=== PATIENT | male | born 1945 | race Caucasian/White ===

== ENCOUNTER → 2016-05-20 | Outpatient (CLI) | payer OTHER ==
[~2016-05-20] VITALS: Ht 177.8 cm; Wt 83.9 kg
[~2016-05-20] MED LIST: ASPIRIN325 PO; BYSTOLIC 5 MG5 M1 PO; CRESTOR10 MG PO; FISH OIL 1,001000 M2 PO; PLAVIX 300 MG300 M1 PO
--- NOTE | ~2016-05-20 | CATHLAB ---
[facility] [place] [address] INVASIVE PROCEDURE REPORT Name: TAMARAMARCELO Fady [facility]: [facility] [id number] Admission: 05/20/16 Attend Phys: Cash Robin, Discharge: Date of : 49 Date of Service: 05/20/16 0908 Report #: [id number] THIS REPORT FOR: //name// CC: Amira Robin PROCEDURES: Left ventriculography and coronary angiography. DESCRIPTION OF PROCEDURE: Right groin prepped and draped in a sterile manner. Xylocaine 1% was used for local anesthesia. Versed was given for conscious sedation. A 6-Turkmen sheath to the right femoral artery. Straight pigtail catheter performed a single BRISCOE ventriculogram and AP aortogram. There was a question of narrowing in the renal arteries. The abdominal aorta was mildly ectatic. FL4 for the left coronary system, FR4 for the right coronary system. Multiple views and obliques were taken. There was a small infrarenal aortic aneurysm, I should note. I will have to evaluate that with noninvasive means, although this appears very small, more of an ectatic aorta. The FR4 for the selective injection of the bilateral single renal arteries with mild disease. The coronary anatomy was mild disease in the LAD; a tortuous lesion in the mid LAD of 50%-60% and then more distal 60% lesion, which has not significantly progressed. Circum OM is a large predominantly dominant vessel. The second is the large OM which has 30% in-stent restenosis from a remotely placed stent. Small codominant right. This gives rise to a small PDA which is mildly diseased. Mynx closure was utilized without complication. He tolerated this well. He will be transferred back to CV holding. HEMODYNAMICS: Aortic 150/72, LV 158/8. IMPRESSION: 1. Left main, free of disease. 2. The left anterior descending, mild proximal calcification, a mid vessel lesion of 50%-60% and in the distal 60%, which has not significantly progressed. Circumflex obtuse marginal is a large predominantly codominant vessel with 30% in-stent restenosis in a previously placed stent. Smaller codominant right, giving rise to a small posterior descending artery, diffusely diseased. 3. Normal left ventricular size and systolic function, ejection fraction 60%. 4. Bilateral single renal arteries have mild ostial disease. 5. There is a small infrarenal aortic ectatic segment or small aneurysm. We will evaluate noninvasively. RECOMMENDATIONS: Continue aggressive risk factor modification. No current [address] [address] INVASIVE PROCEDURE REPORT Name: MARCELO MCDONALD Room #: REG [place] Loza#: [id number] Admission: 05/20/16 Attend Phys: Cash Robin, Discharge: Date of : 49 Date of Service: 05/20/16 0908 Report #: [id number] indication for intervention. No lifting for 48 hours. No lying in tub, Jacuzzi or [place] for a week. <ELECTRONICALLY SIGNED> By: Cash Robin MD, FACC 05/31/16 0847 0908 0943 Cash Robin MD, FACC /nt
[2016-05-20 06:52] VITALS: BP 153/62
[2016-05-20 07:17] LABS: HEMATOCRIT 46.2 % (42.0-52.0); HEMOGLOBIN 15.7 gm/dL (14.0-18.0); MCH 29.4 pg (26.0-34.0); MCHC 33.9 % (28.0-37.0); MCV 86.5 fL (80.0-100.0); RBC 5.34 mil/uL (4.50-6.00); RDW 12.6 % (10.5-14.5); WBC 8.1 thou/uL (4.0-11.0)
[2016-05-20 07:35] LABS: CALCIUM 8.9 mg/dL (8.5-10.1); POTASSIUM 4.2 mmol/L (3.5-5.1)
== END | disposition home or self-care (01) ==
LOC: CATH 06:22
PROVIDERS: Internal Medicine Cardiovascular Disease
DX: I25.10 Atherosclerotic heart disease of native coronary artery without angina pectoris (principal); I71.9 Aortic aneurysm of unspecified site, without rupture

== ENCOUNTER 2017-02-08 12:45 | Inpatient (IN) | payer OTHER ==
[~2017-02-08] VITALS: Ht 177.8 cm; Wt 78.7 kg
--- NOTE | ~2017-02-08 | HC ---
[facility] [place] [address] CONSULTATION Name: MARCELO MCDONALD Room #: 200-I ADM IN ..#: [id number] Admission: 02/08/17 Attend Phys: Travis White MD Discharge: Date of : 49 Report #: [id number] THIS REPORT FOR: //name// CC: Cash [facility] REASON FOR CONSULTATION: Chest pain, possible unstable angina. HISTORY OF PRESENT ILLNESS: The patient is a 72-year-old with history of coronary artery disease, status post stent to the circumflex and OM back in 1999. Most recent cardiac catheterization was in April 2016, showing a mid LAD lesion that was 50-60% and a 30% in-stent lesion within the circumflex. Medical management was recommended. He presented yesterday after he was leaving to go to the [place] and then had an episode of chest pressure that was associated with bilateral arm numbness and heaviness and associated with some shortness of breath and feeling that his neck was tightening up. He presented to the emergency room for further evaluation. He is currently chest pain free. Denies any PND, orthopnea, presyncope, or syncope. REVIEW OF SYSTEMS: A 12-point review of systems was performed and was negative other than what is mentioned above. PAST MEDICAL HISTORY: 1. Coronary artery disease as mentioned above, hypertension, hyperlipidemia, left bundle branch block. 2. Kidney stone. SOCIAL HISTORY: Quit smoking. FAMILY HISTORY: Noncontributory. ALLERGIES: CODEINE. HOME MEDICATIONS: Aspirin, Crestor, fish oil, and Plavix. PHYSICAL EXAMINATION: VITAL SIGNS: Temperature is 36.4, pulse is 49-65, respirations 16, blood pressure 116/68, and sats are 98%. GENERAL: He is in no acute distress. HEENT: Oropharynx is clear. Sclerae are anicteric. NECK: Supple. No thyromegaly. HEART: Regular rate and rhythm with no murmurs, rubs, or gallops. LUNGS: Clear to auscultation bilaterally. ABDOMEN: He is slightly tender in the midepigastric region. There is no rebound, otherwise nontender. No hepatosplenomegaly. EXTREMITIES: No clubbing, cyanosis, or edema. [facility] [address] [place] [address] CONSULTATION Name: MARCELO MCDONALD Room #: 200-I [facility] IN [facility].#: [id number] Admission: 02/08/17 Attend Phys: Travis White MD Discharge: Date of : 49 Report #: [id number] NEUROLOGIC: Cranial nerves 2-12 are intact. LABORATORY DATA: White count is 8.3, hemoglobin 14, and platelets 196. Sodium 139, potassium 4.0, BUN 16, and creatinine 1. Troponins times 3 are negative. LFTs are normal. His proBNP is 70. His CT scan showed no aortic dissection, nothing wrong with the liver or gallbladder. His EKG shows sinus rhythm with a left bundle branch block. His chest x-ray visualized shows no acute process. IMPRESSION: In summary, the patient is a 72-year-old with known coronary artery disease, presenting with chest pain concerning for possible unstable angina. Thus far, his troponins are negative. EKG shows no ischemic changes. I have recommended that he undergo a nuclear stress test and if this is abnormal, we will proceed with repeat heart catheterization. We will continue to follow. By: 1334 1435 Lex White MD /nt
--- NOTE | ~2017-02-08 | EKG ---
[address] [address] ELECTROCARDIOGRAM REPORT Name: MARCELO MCDONALD Room #: 200-I ADM IN M.R.#: [id number] Admission: 02/08/17 Attend Phys: Travis White MD Discharge: Date of : 49 Report #: [id number] THIS REPORT FOR: //name// [facility] ED Test Date: 2017-02-08 Test Time: 12:46:30 Pat Name: MARCELO MCDONALD Department: Room: 200 Gender: M Inspector Glass Or Mirror: MARY LOU : 1945 Requested By: Gabriele Bragg Order Number: [id number] MD: Lex White Measurements Intervals [place] Rate: 83 P: 84 PA: 188 QRS: -31 QRSD: 142 T: 110 QT: 419 QTc: 493 Interpretive Statements Sinus rhythm Left bundle branch block Compared to ECG 05/15/2009 14:04:02 Left bundle-branch block now present Sinus bradycardia no longer present Electronically Signed On 02-08-2017 16:16:37 CDT by Lex White [email or web address] <ELECTRONICALLY SIGNED> By: Lex White MD 02/08/17 1616 1246 1246 Lex White MD /EPI
--- NOTE | ~2017-02-08 | 2DMMODE ---
[facility] [address] [place] [address] 2 D/M-MODE ECHOCARDIOGRAM Name: MARCELO MCDONALD Room #: 200-I ADM IN [facility]#: [id number] Admission: 02/08/17 Attend Phys: Travis White, Discharge: Date of : 49 Date of Service: 02/10/17 0951 Report #: [id number] THIS REPORT FOR: //name// APPROVED REPORT Study performed: 02/10/2017 09:13:30 EXAM: Comprehensive 2D, Doppler, and color-flow Echocardiogram Patient Location: Echo lab Room #: 200 Status: routine BSA: 1.96 HR: 48 bpm BP: 133/77 mmHg Rhythm: LBBB Other Information Study Quality: Adequate/low parasternal window. Lung disease Indications Chest Pain Hx: CAD, stent, HTN, LBBB 2D Dimensions RVDd: 34.81 mm LVEF(%): 45.13 (>50%) IVSd: 9.11 (7-11mm) LVOT Diam: 22.32 (18-24mm) LVDd: 46.51 mm PWd: 8.90 (7-11mm) LVDs: 36.10 (25-40mm) Aortic Root: 30.50 mm Fuentes's LVEF: 45.13 % Volumes Left Atrial Volume (Systole) Single Plane 4CH: 41.32 mL Single Plane 2CH: 31.03 mL LA ESV Index: 19.00 mL/m2 Aortic Valve AoV Peak Tang.: 0.96 m/s AO Peak Gr.: 3.72 mmHg LVOT Max P.01 mmHg LVOT Max V: 0.87 m/s JAMAL Vmax: 3.52 cm2 Mitral Valve [facility] [place] [address] 2 D/M-MODE ECHOCARDIOGRAM Name: MARCELO MCDONALD Room #: 200-I [facility] IN ..#: [id number] Admission: 02/08/17 Attend Phys: Travis White, Discharge: Date of : 49 Date of Service: 02/10/17 0951 Report #: [id number] E/A Ratio: 0.8 MV Decel. Time: 214.17 ms MV E Max Tang.: 0.61 m/s MV A Tang.: 0.78 m/s MV PHT: 62.11 ms IVRT: 119.95 ms Pulmonary Valve PV Peak Tang.: 0.83 m/s PV Peak Gr.: 2.73 mmHg Pulmonary Vein P Vein S: 0.48 m/s P Vein A: 0.32 m/s P Vein D: 0.46 m/s P Vein A Dur.: 110.7 msec P Vein S/D Ratio: 1.04 Tricuspid Valve RAP Estimate: 5.00 mmHg Left Ventricle The left ventricle is normal size. Paradoxical septal motion consistent with conduction abnormality. There is normal left ventricular wall thickness. Left ventricular systolic function is at the lower limits of normal. LVEF is 45-50%. Mild diastolic dysfunction is present (impaired relaxation pattern). Right Ventricle The right ventricle is normal size. The right ventricular systolic function is normal. Atria The left atrium size is normal. The right atrium size is normal. Aortic Valve The aortic valve is normal in structure. No aortic regurgitation is present. There is no aortic valvular stenosis. Mitral Valve The mitral valve is normal in structure. No mitral regurgitation. No evidence of mitral valve stenosis. Tricuspid Valve The tricuspid valve is normal in structure. There is no tricuspid valve regurgitation noted. Unable to assess PA pressure. Pulmonic Valve [place] [id number] 2 D/M-MODE ECHOCARDIOGRAM Name: TAMARAMARCELO Fady Room #: 200-I [facility] IN [facility]#: [id number] Admission: 02/08/17 Attend Phys: Travis White, Discharge: Date of : 49 Date of Service: 02/10/17 0951 Report #: [id number] Pulmonic valve is not well visualized. Great Vessels The aortic root is normal in size. Ascending aorta is not well visualized. IVC is normal in size and collapses >50% with inspiration. Pericardium There is no pericardial effusion. <Conclusion> Left ventricular systolic function is at the lower limits of normal. Paradoxical septal motion consistent with conduction abnormality. LVEF 45-50%. Mild diastolic dysfunction is present (impaired relaxation pattern). The aortic valve is normal in structure. No aortic valvular stenosis or insufficiency. The mitral valve is normal in structure. No mitral regurgitation. Pulmonary artery pressure could not be reliably ascertained There is no pericardial effusion. <ELECTRONICALLY SIGNED> By: Flaquito Valle MD, FACC 02/10/17950 0 0 Flaquito Valle MD, FACC /INF
[2017-02-08 12:47] VITALS: BP 171/102
[2017-02-08 13:18] LABS: ABSOLUTE NEUTROPHILS 4.9 thou/uL (1.4-8.2); BASOPHILS 0.7 % (0.0-2.0); EOSINOPHILS 3.2 % (0.0-3.0); HEMATOCRIT 47.5 % (42.0-52.0); HEMOGLOBIN 16.4 gm/dL (14.0-18.0); LYMPHOCYTES 31.5 % (24.0-44.0); MCH 30.4 pg (26.0-34.0); MCHC 34.4 g/dL (28.0-37.0); MCV 88.1 fL (80.0-100.0); MONOCYTES 9.8 % (1.0-8.0); PLATELET COUNT 221 thou/uL (150-400); POLYS 54.8 % (36.0-66.0); RBC 5.39 mil/uL (4.50-6.00); RDW 12.7 % (10.5-14.5); WBC 8.9 thou/uL (4.0-11.0)
[2017-02-08 13:19] LABS: MANUAL DIFF NO
[2017-02-08 13:22] LABS: POC CA IONIZED 4.8 mg/dL (4.5-5.3); POC CREATININE 1.2 mg/dL (0.6-1.3); POC HEMOGLOBIN 15.6 g/dL (14.0-18.0)
[2017-02-08 13:27] LABS: ANION GAP 8 mmol/L (7-16); BUN 18 mg/dL (7-18); CALCIUM 10.3 mg/dL (8.5-10.1); CHLORIDE 104 mmol/L (98-107); CO2 26 mmol/L (21-32); CREATININE 1.2 mg/dL (0.7-1.3); GLUCOSE 97 mg/dL (74-106); POTASSIUM 4.3 mmol/L (3.5-5.1); SODIUM 138 mmol/L (136-145)
[2017-02-08 13:35] LABS: ALBUMIN 4.7 g/dL (3.4-5.0); ALKALINE PHOSPHATASE 76 U/L (46-116); DIRECT BILIRUBIN 0.2 mg/dL (<0.1-0.3); SGOT 20 U/L (15-37); SGPT 23 U/L (30-65); TOTAL BILIRUBIN 0.8 mg/dL (<0.1-1.0); TOTAL PROTEIN 7.6 g/dL (6.4-8.2); TROPONIN-I < 0.04 ng/mL (<0.04-0.07)
[2017-02-08 14:51] VITALS: BP 129/71
[2017-02-08 15:13] VITALS: BP 140/73
[2017-02-08 19:34] VITALS: BP 128/64
[2017-02-09 04:20] LABS: HEMATOCRIT 43.5 % (42.0-52.0); HEMOGLOBIN 14.9 gm/dL (14.0-18.0); MCH 30.2 pg (26.0-34.0); MCHC 34.3 g/dL (28.0-37.0); MCV 87.9 fL (80.0-100.0); RBC 4.94 mil/uL (4.50-6.00); RDW 12.5 % (10.5-14.5); WBC 8.3 thou/uL (4.0-11.0)
[2017-02-09 04:21] VITALS: BP 113/57
[2017-02-09 04:40] LABS: CALCIUM 9.1 mg/dL (8.5-10.1); TROPONIN-I 0.05 ng/mL (<0.04-0.07)
[2017-02-09 08:36] VITALS: BP 135/75
[2017-02-09 12:36] VITALS: BP 116/68
[2017-02-09 15:54] VITALS: BP 134/66
[2017-02-09 20:13] VITALS: BP 116/64
[2017-02-10 03:28] VITALS: BP 119/59
[2017-02-10 07:50] VITALS: BP 133/77
[2017-02-10 15:55] VITALS: BP 133/77
== END 2017-02-10 18:28 | disposition home or self-care (01) | DRG 313 ==
LOC: ER 12:45 → 2N 14:24 → EROBS 14:24 → 2N 15:13
PROVIDERS: Internal Medicine; Physician Assistant
DX: R07.89 Other chest pain (principal); I10 Essential (primary) hypertension; E78.5 Hyperlipidemia, unspecified; I44.7 Left bundle-branch block, unspecified; I25.10 Atherosclerotic heart disease of native coronary artery without angina pectoris; Z95.5 Presence of coronary angioplasty implant and graft; Z87.442 Personal history of urinary calculi; Z79.899 Other long term (current) drug therapy; Z79.82 Long term (current) use of aspirin; Z87.891 Personal history of nicotine dependence; Z88.6 Allergy status to analgesic agent; Z79.02 Long term (current) use of antithrombotics/antiplatelets
CPT/HCPCS: 10081

== ENCOUNTER 2019-04-07 12:24 | Emergency (ER) | payer OTHER ==
[~2019-04-07] VITALS: Ht 177.8 cm; Wt 74.8 kg
[2019-04-07 13:26] LABS: ABSOLUTE NEUTROPHILS 10.4 thou/uL (1.4-8.2); BASOPHILS 0.8 % (0.0-2.0); EOSINOPHILS 1.3 % (0.0-3.0); HEMATOCRIT 47.3 % (42.0-52.0); HEMOGLOBIN 15.5 gm/dL (14.0-18.0); LYMPHOCYTES 10.4 % (24.0-44.0); MCH 30.2 pg (26.0-34.0); MCHC 32.8 g/dL (28.0-37.0); MCV 92.1 fL (80.0-100.0); MONOCYTES 8.2 % (1.0-8.0); PLATELET COUNT 208 thou/uL (150-400); POLYS 79.3 % (36.0-66.0); RBC 5.13 mil/uL (4.50-6.00); RDW 13.1 % (10.5-14.5); WBC 13.2 thou/uL (4.0-11.0)
[2019-04-07 13:32] LABS: ANION GAP 9 mmol/L (7-16); BUN 22 mg/dL (7-18); CALCIUM 9.7 mg/dL (8.5-10.1); CHLORIDE 105 mmol/L (98-107); CO2 27 mmol/L (21-32); CREATININE 1.1 mg/dL (0.7-1.3); GLUCOSE 99 mg/dL (74-106); POTASSIUM 4.1 mmol/L (3.5-5.1); SODIUM 141 mmol/L (136-145)
[2019-04-07 13:42] LABS: SGOT 17 U/L (15-37); SGPT 25 U/L (30-65); TOTAL BILIRUBIN 0.8 mg/dL (<0.1-1.0); TOTAL PROTEIN 7.2 g/dL (6.4-8.2); TROPONIN-I <0.06 ng/mL (<0.06)
[2019-04-07 17:31] VITALS: BP 125/68
--- NOTE | 2019-04-08 09:39 | EKG ---
[place] [address] [place] [address] ELECTROCARDIOGRAM REPORT Name: MARCELO MCDONALD [id number] Admission: 04/07/19 Attend Phys: Discharge: 04/07/19 Date of : 49 Report #: [id number] THIS REPORT FOR: //name// [facility] ED Test Date: 2019-04-07 Test Time: 12:28:16 Pat Name: MARCELO MCDONALD Department: Room: Gender: Sports Equipment Repairer: [facility] : 1945 Requested By: Ruthie Sanabria Order Number: [id number] MD: Flaquito Valle Measurements Intervals [place] Rate: 53 P: 10 NM: 158 QRS: -28 QRSD: 139 T: 100 QT: 452 QTc: 425 Interpretive Statements Sinus rhythm Left bundle branch block Compared to ECG 02/08/2017 12:46:30 No significant changes Electronically Signed On 04-08-2019 9:39:26 CLOTH FINISHING RANGE OPERATOR CHIEF by Flaquito Valle [email or web address] <ELECTRONICALLY SIGNED> By: Flaquito Valle MD, [facility] 04/08/19 0939 1228 1228 Flaquito Valle MD, FACC /EPI
== END 2019-04-07 17:31 | disposition home or self-care (01) ==
LOC: ER 12:24
PROVIDERS: Physician Assistant
DX: R42 Dizziness and giddiness (principal); I10 Essential (primary) hypertension; E78.5 Hyperlipidemia, unspecified; Z95.5 Presence of coronary angioplasty implant and graft; Z87.442 Personal history of urinary calculi; Z87.891 Personal history of nicotine dependence; Z88.6 Allergy status to analgesic agent

== ENCOUNTER 2019-04-11 11:17 | Emergency (ER) | payer OTHER ==
[~2019-04-11] VITALS: Ht 177.8 cm; Wt 74.8 kg
[2019-04-11 11:36] LABS: ABSOLUTE NEUTROPHILS 7.2 thou/uL (1.4-8.2); BASOPHILS 0.5 % (0.0-2.0); EOSINOPHILS 1.4 % (0.0-3.0); HEMOGLOBIN 15.8 gm/dL (14.0-18.0); LYMPHOCYTES 13.7 % (24.0-44.0); MCH 30.4 pg (26.0-34.0); MCHC 33.7 g/dL (28.0-37.0); MCV 90.1 fL (80.0-100.0); MONOCYTES 7.2 % (1.0-8.0); PLATELET COUNT 203 thou/uL (150-400); POLYS 77.2 % (36.0-66.0); RBC 5.21 mil/uL (4.50-6.00); RDW 12.8 % (10.5-14.5); WBC 9.3 thou/uL (4.0-11.0)
[2019-04-11 11:50] LABS: ANION GAP 9 mmol/L (7-16); BUN 19 mg/dL (7-18); CALCIUM 9.7 mg/dL (8.5-10.1); CHLORIDE 105 mmol/L (98-107); CO2 26 mmol/L (21-32); CREATININE 1.1 mg/dL (0.7-1.3); GLUCOSE 158 mg/dL (74-106); POTASSIUM 3.8 mmol/L (3.5-5.1); SODIUM 140 mmol/L (136-145)
[2019-04-11 11:54] LABS: ALBUMIN 3.8 g/dL (3.4-5.0); SGOT 14 U/L (15-37); SGPT 23 U/L (30-65); TOTAL BILIRUBIN 0.7 mg/dL (<0.1-1.0); TOTAL PROTEIN 6.9 g/dL (6.4-8.2); TROPONIN-I <0.06 ng/mL (<0.06)
[2019-04-11 13:00] VITALS: BP 131/58
--- NOTE | 2019-04-15 12:45 | EKG ---
[place] [address] [facility] [place] [address] ELECTROCARDIOGRAM REPORT Name: MARCELO MCDONALD [facility] [id number] Admission: 04/11/19 Attend Phys: Discharge: 04/11/19 Date of : 49 Report #: [id number] THIS REPORT FOR: //name// [facility] ED Test Date: 2019-04-11 Test Time: 11:14:24 Pat Name: MARCELO MCDONALD Department: Room: Gender: Tax Compliance Manager: [facility] : 1945 Requested By: Ruthie Sanabria Order Number: [id number] MD: Lex White Measurements Intervals [place] Rate: 65 P: 83 [place]: 166 QRS: -25 QRSD: 140 T: 118 QT: 429 QTc: 447 Interpretive Statements Sinus rhythm Probable left atrial enlargement Left bundle branch block Compared to ECG 04/07/2019 12:28:16 No significant changes Electronically Signed On 04-15-2019 12:45:24 ASSOCIATE DIRECTOR OF BIOSTATISTICS by Lex White [email or web address] <ELECTRONICALLY SIGNED> By: Lex White MD 04/15/19 1245 1114 111 Lex White MD /RAJ
== END 2019-04-11 13:01 | disposition home or self-care (01) ==
LOC: ER 11:17
PROVIDERS: Physician Assistant
DX: R00.2 Palpitations (principal); I10 Essential (primary) hypertension; E78.5 Hyperlipidemia, unspecified; Z87.442 Personal history of urinary calculi; Z95.5 Presence of coronary angioplasty implant and graft; Z87.891 Personal history of nicotine dependence; Z88.6 Allergy status to analgesic agent

== ENCOUNTER → 2019-09-20 | Outpatient (CLI) | payer OTHER | LOC: SJCVC 10:47 | DX: I44.7 Left bundle-branch block, unspecified (principal); R00.1 Bradycardia, unspecified; R94.31 Abnormal electrocardiogram [ECG] [EKG]; I25.10 Atherosclerotic heart disease of native coronary artery without angina pectoris; I10 Essential (primary) hypertension; E78.00 Pure hypercholesterolemia, unspecified; I71.4 Abdominal aortic aneurysm, without rupture; I65.23 Occlusion and stenosis of bilateral carotid arteries; E78.5 Hyperlipidemia, unspecified; Z82.49 Family history of ischemic heart disease and other diseases of the circulatory system; Z79.82 Long term (current) use of aspirin; Z79.899 Other long term (current) drug therapy; Z87.891 Personal history of nicotine dependence ==

== ENCOUNTER → 2020-01-26 | Outpatient (CLI) | payer OTHER ==
[2020-01-26 10:12] LABS: CALCIUM 9.4 mg/dL (8.5-10.1); CREATININE 0.9 mg/dL (0.7-1.3); POTASSIUM 4.6 mmol/L (3.5-5.1)
== END ==
LOC: CAT 09:35
PROVIDERS: ATTEND Internal Medicine Cardiovascular Disease
DX: Z01.812 Encounter for preprocedural laboratory examination (principal); J43.9 Emphysema, unspecified; I25.10 Atherosclerotic heart disease of native coronary artery without angina pectoris; I70.0 Atherosclerosis of aorta; J84.10 Pulmonary fibrosis, unspecified

== ENCOUNTER → 2020-02-01 | Outpatient (CLI) | payer OTHER | LOC: SJCVCIMAG 07:17 | PROVIDERS: ATTEND Internal Medicine Cardiovascular Disease | DX: I25.10 Atherosclerotic heart disease of native coronary artery without angina pectoris (principal); I10 Essential (primary) hypertension; I71.4 Abdominal aortic aneurysm, without rupture ==

== ENCOUNTER → 2020-02-04 | Outpatient (CLI) | payer OTHER ==
[~2020-02-04] MED LIST changes: +FLOMAX0.4 MG PO; +VIAGRA50 MG PO
== END ==
LOC: SJCVCIMAG 09:43
PROVIDERS: ATTEND Internal Medicine Cardiovascular Disease
DX: I25.10 Atherosclerotic heart disease of native coronary artery without angina pectoris (principal); I44.7 Left bundle-branch block, unspecified; I49.3 Ventricular premature depolarization; Z79.899 Other long term (current) drug therapy; Z87.891 Personal history of nicotine dependence

== ENCOUNTER → 2020-02-10 | Outpatient (CLI) | payer OTHER ==
[~2020-02-10] VITALS: Ht 177.8 cm; Wt 77.1 kg
[2020-02-10 07:15] VITALS: BP 142/58
[2020-02-10 07:48] LABS: HEMOGLOBIN 15.2 gm/dL (14.0-18.0); MCH 30.2 pg (26.0-34.0); MCHC 33.9 g/dL (28.0-37.0); RBC 5.05 mil/uL (4.50-6.00); RDW 12.8 % (10.5-14.5); WBC 7.6 thou/uL (4.0-11.0)
--- NOTE | 2020-02-10 07:57 | EKG ---
[facility] [place] [address] ELECTROCARDIOGRAM REPORT Name: MARCELO MCDONALD Room #: REG [facility]#: [id number] Admission: 02/10/20 Attend Phys: Cash Robin MD, Discharge: Date of : 49 Report #: [id number] THIS REPORT FOR: cc: GEMA FU FAMILY PHYSICIAN or PCP Mohsen Michelle MD [facility] ~ THIS REPORT FOR: //name// [facility] Test Date: 2020-02-10 Test Time: 07:32:34 Pat Name: MARCELO MCDONALD Department: Room: Gender: Food Processing Chemist: [facility] : 1945 Requested By: Cash Robin Order Number: [id number] MD: Mohsen Michelle Measurements Intervals [place] Rate: 59 P: 79 [place]: 169 QRS: -31 QRSD: 141 T: 106 QT: 449 QTc: 445 Interpretive Statements Sinus rhythm Left bundle branch block Compared to ECG 04/11/2019 11:14:24 No significant changes Electronically Signed On 02-10-2020 7:57:34 CDT by Mohsen Michelle [email or web address] <ELECTRONICALLY SIGNED> By: Mohsen Michelle MD, FACC 02/10/20 0757 0732 0732 Mohsen Michelle MD, [facility] /EPI
[2020-02-10 08:34] LABS: CALCIUM 9.4 mg/dL (8.5-10.1); CREATININE 1.1 mg/dL (0.7-1.3); POTASSIUM 4.3 mmol/L (3.5-5.1)
[2020-02-10 09:46] VITALS: BP 142/58
--- NOTE | 2020-02-11 08:50 | D ---
[facility] [place] [address] DISCHARGE SUMMARY Name: MARCELO MCDONALD Room #: REG [facility]#: [id number] Admission: 02/10/20 Attend Phys: Cash Robin MD, Discharge: Date of : 49 Report #: [id number] THIS REPORT FOR: cc: GEMA FU FAMILY PHYSICIAN or PCP Cash Robin MD [facility] THIS REPORT FOR: //name// CC: GEMA DE LUNA PCP SHORT STAY SUMMARY HISTORY OF PRESENT ILLNESS: The patient is a 75-year-old male well known to myself. He is admitted today for cardiac catheterization, having some progressive fatigue and some questionable chest discomfort. A nuclear stress test suggested some worsening jennifer-infarct ischemia. He has underlying left bundle branch block and some labile hypertension. Last catheterization was on April 2016. He has had a remote OM stent placed. MEDICATIONS: His medications have been aspirin, Plavix, fish oil, Viagra, olmesartan 20 and Flomax. PAST MEDICAL HISTORY: Positive for the coronary artery disease, limited inferolateral infarct with preserved EF, hypertension, hypercholesterolemia, bundle branch block. He has had intervention in 2009. The stent was placed. FAMILY HISTORY: Father had cancer. Grandfather did have an early infarct. SOCIAL HISTORY: He is , former tobacco user. No significant social alcohol. No drug use. Cup of coffee a day. He does walk somewhat regularly. REVIEW OF SYSTEMS: Negative except for stated above. Slight decrease in exercise tolerance and some occasional nocturia. ALLERGIES: No known drug allergies. PHYSICAL EXAMINATION: VITAL SIGNS: Blood pressure is 146/72, pulse 60. EYES: Reveal xanthelasmas. Pharynx is clear. NECK: Shows preserved upstrokes without JVD or bruits. LUNGS: Clear. CARDIAC: Regular rate and rhythm, S1, S2, without murmur or gallop. ABDOMEN: Soft. No HSM or abdominal bruit. EXTREMITIES: Trace of edema, nonpitting. NEUROLOGIC: Nonfocal. [facility] [address] [place] [address] DISCHARGE SUMMARY Name: MARCELO MCDONALD Room #: [facility]#: [id number] Admission: 02/10/20 Attend Phys: Cash Robin MD, Discharge: Date of : 49 Report #: [id number] SKIN: Warm and dry, without xanthoma or ulcer. MUSCULOSKELETAL: No gross joint deformity. HOSPITAL COURSE: The patient subsequently went to the catheterization lab, coronary angiography and renal angiography. He had minimal progression of his coronary artery disease, 30-40% proximal, 30% proximal LAD and mid LAD in the 50% range, which had not progressed. The first OM had a tight lesion, but there was a very small caliber and would not be amenable to intervention. The second OM, which had the stent at 30-40% in-stent restenosis and it was a predominantly dominant vessel. A smaller codominant right had diffuse disease. The left renal artery had some question of some moderate atherosclerosis, but not flow limiting, possibly an area of fibromuscular disease. Right renal artery is widely patent. The patient tolerated this procedure well. He is doing well. There is no indication for intervention here. DISCHARGE DIAGNOSES: 1. Coronary artery disease, minimal progression of coronary artery disease based on catheterization above. 2. Hypertension. 3. Hypercholesterolemia. 4. Left bundle branch block. 5. Benign prostatic hypertrophy. RECOMMENDATIONS AND PLAN: We will continue aggressive risk factor modification. No lifting for 48 hours. No lying in tub, Jacuzzi or coffey for a week. He will follow up as scheduled in my office in 9 months. Regular aerobic activity strongly encourage. Resume home medications. <ELECTRONICALLY SIGNED> By: Cash Robin MD, FACC 02/11/20 0850 0908 1059 Cash Robin MD, FACC /nt
--- NOTE | 2020-02-11 15:43 | CATHLAB ---
[facility] [place] [address] INVASIVE PROCEDURE REPORT Name: MARCELO MCDONALD Room #: REG [facility]#: [id number] Admission: 02/10/20 Attend Phys: Cash Robin MD, Discharge: Date of : 49 Report #: [id number] THIS REPORT FOR: cc: GEMA FU FAMILY PHYSICIAN or PCP Cash Robin MD [facility] ~ APPROVED REPORT Study performed: 02/10/2020 07:30:03 Patient Details Patient Status: Out-Patient Room #: The patient is a 75 year-old male Event Personnel Cash Robin Import Export Clerk, Hakeem Wilson RN RN, WoodstockRaysa RTR Monitor, Tayla Dior Scrub Procedures Performed Art Access - R femoral artery* Left Heart Cath w/or w/o Coronaries [id number] [facility] Renal Bilateral Peripheral Angiography [id number] CVRENALBIL Hemostasis w/ Mynx 62302 Initial Mod Sed Same Phys/QHP Gr5y 850833 , 82148 Mod Sed Same Phys/QHP Ea 489144 Procedure Narrative The Right Groin^ was infiltrated with 1% Lidocaine subcutaneous anesthesia. A PINNACLE 6FR Sheath #[id number] sheath was inserted into the RFA^. Coronary angiography was performed using coronary diagnostic catheters. The right coronary system was accessed and visualized with a JR4 catheter. The left coronary system was accessed and visualized with a JL4 catheter. The left ventricle was accessed and visualized with a PIGTAIL catheter. Left ventriculogram was performed in 30 degree projection. Pre-demployment femoral angiogram was performed . Closure device was deployed with a Fr MYNXGRIP 6/7F #[id number]. The patient tolerated the procedure well and there were no complications associated with the procedure. There was no hematoma. Intraoperative Conscious Sedation Sedation start time: 8:39 Case end Time: 9:08 Fentanyl 50 mcg Versed 2 mg Fluoro Time: 2.20 minutes [facility] [place] [address] INVASIVE PROCEDURE REPORT Name: MARCELO MCDONALD Room #: [facility]#: [id number] Admission: 02/10/20 Attend Phys: Cash Robin, Discharge: Date of : 49 Report #: [id number] Dose: DAP 3994.20 cGycm2 522 mGy Contrast Type and Amount: Omnipaque 85 ml Hemodynamics The aortic pressure is 159/70 mmHg with a mean of 107 mmHg. The left ventricular pressure is 150/9 mmHg with a mean of mmHg. The left ventricular end diastolic pressure is 18 mmHg. Conclusion #1. Normal left jugular size and systolic function EF 60% #2 left main is moderate in size calcified giving rise to LAD and circumflex no occlusive disease #3 LAD is relatively small in caliber and diffusely diseased but no high-grade disease is noted. Previous proximal LAD stent with mild in-stent restenosis. #4 circumflex OM mild disease codominant vessel. 80% ostial first OM diffusely disease a larger circumflex and distal OM widely patent. It is a codominant system. #5 codominant right relatively small in caliber with mild diffuse disease. #6 selective injection left renal artery has mild disease 20 to 30% some question of mild fibromuscular irregularity. This is not flow-limiting. #7 right renal artery widely patent Recommendations and plan: Continue aggressive risk factor modification. There is no indication for coronary intervention. <ELECTRONICALLY SIGNED> By: Cash Robin MD, FACC 02/11/20 1543 1543 1543 Cash Robin MD, FACC /INF
== END | disposition home or self-care (01) ==
LOC: CATH 06:21
PROVIDERS: ATTEND Internal Medicine Cardiovascular Disease
DX: I25.10 Atherosclerotic heart disease of native coronary artery without angina pectoris (principal); T82.855A Stenosis of coronary artery stent, initial encounter; I70.1 Atherosclerosis of renal artery; I10 Essential (primary) hypertension; E78.5 Hyperlipidemia, unspecified; I49.5 Sick sinus syndrome; Z98.890 Other specified postprocedural states; Z79.899 Other long term (current) drug therapy; Z88.8 Allergy status to other drugs, medicaments and biological substances; Y83.8 Other surgical procedures as the cause of abnormal reaction of the patient, or of later complication, without mention of misadventure at the time of the procedure

== ENCOUNTER → 2020-05-22 | Outpatient (CLI) | payer OTHER | LOC: SJCVC 13:13 | PROVIDERS: ATTEND Internal Medicine Cardiovascular Disease | DX: R94.31 Abnormal electrocardiogram [ECG] [EKG] (principal); I44.7 Left bundle-branch block, unspecified; I25.10 Atherosclerotic heart disease of native coronary artery without angina pectoris; I10 Essential (primary) hypertension; E78.00 Pure hypercholesterolemia, unspecified; R00.1 Bradycardia, unspecified; E78.5 Hyperlipidemia, unspecified; Z87.891 Personal history of nicotine dependence; Z72.89 Other problems related to lifestyle; Z79.82 Long term (current) use of aspirin; Z79.899 Other long term (current) drug therapy ==